=== PATIENT | female | born 1990 | race African-American/Black ===

== ENCOUNTER 2019-12-24 09:46 | Emergency (ER) | payer OTHER, SELFPAY ==
--- NOTE | ~2019-12-24 | XR_ITS ---
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 TECHNIQUE: frontal view of the chest was obtained. COMPARISON: None FINDINGS: The lungs are clear with no focal airspace opacities, pulmonary edema, pleural effusion or pneumothor ax. The cardiomediastinal silhouette is normal. Visualized bones and soft tissues are unremarkable. IMPRESSION: 1. No acute cardiopulmonary disease. Reviewed, dictated and finalized at location A.
[2019-12-24 09:52] VITALS: BP 118/74; PULSE 93; RESP 20; TEMP 36.8; O2SAT 99
--- NOTE | 2019-12-24 10:18 | ED.URI ---
HPI - URI/Sore Throat General Chief Complaint: Upper Respiratory Infection Stated Complaint: fever, cough, congestion Time Seen by Provider: 12/24/19 10:05 Source: patient Mode of arrival: ambulatory Limitations: no limitations History of Present Illness HPI Narrative: This is a 29-year-old female that presents the emergency department for cold symptoms since yesterday. Reports fever, cough, congestion and myalgias. 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 Is unsure if she has been exposed. Denies shortness of breath. Related Data Home Medications Medication Instructions Recorded Confirmed norgestrel-ethinyl estradiol 1 tablet PO DAILY 12/24/19 12/24/19 [Dottie (29)] Allergies Allergy/AdvReac Type Severity Reaction Status Date / Time azithromycin Allergy Intermediate Pruritic Verified 12/24/19 10:02 rash Review of Systems Review of Systems: Narrative: CONSTITUTIONAL: Reports fever ENT: Reports rhinorrhea, congestion. Denies sore throat RESPIRATORY: Denies dyspnea. All systems reviewed & are unremarkable except as noted in HPI and below PMFSH Family History Family History (Updated 05/30/18 @ 11:12 by DOCTOR UNKNOWN) Grandparent Diabetes mellitus Family history of malignant neoplasm Father Hypertension Mother Family history of elevated blood lipids Social History Social History (Updated 12/24/19 @ 10:20 by Corinne Dickson PA-C) Smoking status: Never smoker Alcohol intake: current Substance use: never Exam Narrative: Exam Narrative: GENERAL: Well-appearing, well-nourished, and in no acute distress. HEAD: Normocephalic, atraumatic. EYES: EOMI. ENT: Nares clear, no rhinorrhea or epistaxis. Mucous membranes moist. Oropharynx without tonsillar hypertrophy exudate or other lesions. Bilateral TMs pearly badillo non-bulging NECK: Supple. No adenopathy or masses. CHEST: Clear to auscultation. No respiratory distress. No wheezes rales or rhonchi HEART: Regular rate and rhythm. No murmur heard. Normal peripheral pulses. EXTREMITIES: Normal range of motion. No edema. SKIN: Warm, dry, no rash. NEURO: No focal deficits. Alert and oriented x3. PSYCH: Normal mood and affect Course Vital Signs Vital signs: Vital Signs Temperature 98.3 F 12/24/19 09:52 Pulse Rate 93 12/24/19 09:52 Respiratory Rate 12/24/19 09:52 Blood Pressure 118/74 12/24/19 09:52 Pulse Oximetry 99 12/24/19 09:52 Temperature 98.3 F 12/24/19 09:52 Pulse Rate 93 12/24/19 09:52 Respiratory Rate 20 12/24/19 09:52 Blood Pressure 118/74 12/24/19 09:52 Pulse Oximetry 99 12/24/19 09:52 MDM - URI/Sore Throat MDM Narrative Medical decision making narrative: Patient presents to the emergency department for cold symptoms since yesterday. She is afebrile and nontoxic-appearing. Vitals are normal. Chest x-ray is without acute findings. Patient was tested for coronavirus as she works in an assisted living facility with known cases. Was instructed on importance of self isolating. Patient awaiting test results and will follow-up with primary for this. Patient is stable and felt appropriate for further outpatient evaluation. She was given warnings to return to the ER Imaging Data Radiologist's impression: ITS Impressions Chest X-Ray 12/24/19 10:46 IMPRESSION: 1. No acute cardiopulmonary disease. Critical Care Time Critical Care Time Critical Care Time: No Discharge Plan Discharge Clinical Impression: Viral infection Patient Disposition: Home, Self-Care Condition: Stable Instructions: Viral Syndrome (ED) Additional Instructions: Return to the emergency department for worsening symptoms, or any other concerns Remain well-hydrated, get plenty of rest. Take Tylenol or Motrin [id number] for pain as needed. Flonase for nasal congestion. Zyrtec for runny nose. Lozenges or Chloraseptic spray for sore throat. It is imp
[2019-12-24 11:37] VITALS: PULSE 82; RESP 18; O2SAT 98
[2019-12-24 19:45] LABS: SARS-CoV-2 RNA PCR Positive
== END 2019-12-24 11:38 | disposition home or self-care (01) ==
PROVIDERS: Physician Assistant; Emergency Provider Emergency Medicine; PCP Internal Medicine
DX: U07.1 COVID-19 (principal)
CPT/HCPCS: 71045; 87635; 99283; C9803; U0003